=== PATIENT | male | born 1980 | race Caucasian/White ===

== ENCOUNTER → 2016-06-27 | Outpatient (CLI) | payer MEDICAID ==
[2016-06-27 08:05] LABS: Basophils # (A) 0.1 k/uL (0-0.2); Basophils % (A) 1 %; CHCM 34.3; Eosinophils # (A) 0.3 k/uL (0-0.7); Eosinophils % (A) 2 %; HCT 46.6 % (39.0-53.0); HGB 15.4 gm/dL (13.0-17.5); Luc # (Auto) 0.34; Luc % (Auto) 3; Lymphocytes # (A) 4.5 k/uL (1.0-4.8); Lymphocytes % (A) 37 %; MCH 26.1 pg (25.0-35.0); MCV 79.1 fL (80.0-100.0); Mean Platelet Volume 6.6; Monocytes # (A) 0.7 k/uL (0-1.0); Monocytes % (A) 6 %; Neutrophils # (A) 6.3 k/uL (1.3-7.7); Neutrophils % (A) 51 %; RDW 15.5 % (11.5-15.5); WBC 12.3 k/uL (3.8-10.6); WBC (Perox) 12.43
[2016-06-27 08:30] LABS: ALT 41 U/L (21-72); AST 29 U/L (17-59); Alkaline Phosphatase 58 U/L (38-126); Anion Gap 12 mmol/L; Blood Urea Nitrogen 19 mg/dL (9-20); Calcium 9.4 mg/dL (8.4-10.2); Carbon Dioxide 25 mmol/L (22-30); Chloride 104 mmol/L (98-107); Cholesterol 161 mg/dL (<200); Glucose 149 mg/dL (74-99); HDL Cholesterol 27 mg/dL (40-60); Non-African American GFR(MDRD) >60 (>60 ml/min/1.73 sqM); Potassium 4.5 mmol/L (3.5-5.1); Sodium 141 mmol/L (137-145); Total Bilirubin 0.7 mg/dL (0.2-1.3); Total Protein 8.1 g/dL (6.3-8.2); Triglycerides 236 mg/dL (<150)
[2016-06-27 08:40] LABS: Appearance,Urine Clear (Clear); Bilirubin,Urine Negative (Negative); Glucose,Urine (UA) Negative (Negative); Ketones,Urine Negative (Negative); Leukocyte Esterase,Urine Negative (Negative); Nitrite,Urine Negative (Negative); PH, Urine 5.5 (5.0-8.0); Protein,Urine Trace (Negative); Specific Gravity,Urine 1.024 (1.001-1.035); UA Billing (MACRO vs. MICRO) CHEM; Urobilinogen,Urine <2.0 mg/dL (<2.0)
== END | disposition home or self-care (01) ==
LOC: LABWHC1 07:37
PROVIDERS: ATTEND Internal Medicine
DX: E11.40 Type 2 diabetes mellitus with diabetic neuropathy, unspecified (principal); I10 Essential (primary) hypertension; E55.9 Vitamin D deficiency, unspecified
CPT/HCPCS: 36415; 80053; 80061; 81003; 82043; 82306; 85025

== ENCOUNTER → 2017-06-19 | Outpatient (CLI) | payer MEDICAID ==
[2017-06-19 08:57] LABS: Basophils # (A) 0.1 k/uL (0-0.2); Basophils % (A) 1 %; Eosinophils # (A) 0.2 k/uL (0-0.7); Eosinophils % (A) 2 %; HCT 45.2 % (39.0-53.0); HGB 15.2 gm/dL (13.0-17.5); Lymphocytes # (A) 3.3 k/uL (1.0-4.8); Lymphocytes % (A) 31 %; MCH 26.5 pg (25.0-35.0); MCHC 33.7 g/dL (31.0-37.0); MCV 78.7 fL (80.0-100.0); Monocytes # (A) 0.5 k/uL (0-1.0); Monocytes % (A) 5 %; Neutrophils # (A) 6.2 k/uL (1.3-7.7); Neutrophils % (A) 59 %; Platelet Count 224 k/uL (150-450); RBC 5.74 m/uL (4.30-5.90); RDW 15.4 % (11.5-15.5); WBC 10.7 k/uL (3.8-10.6)
[2017-06-19 09:16] LABS: ALT 47 U/L (21-72); AST 30 U/L (17-59); Albumin 4.3 g/dL (3.5-5.0); Alkaline Phosphatase 65 U/L (38-126); Anion Gap 15 mmol/L; Blood Urea Nitrogen 18 mg/dL (9-20); Calcium 9.6 mg/dL (8.4-10.2); Carbon Dioxide 27 mmol/L (22-30); Chloride 100 mmol/L (98-107); Cholesterol 177 mg/dL (<200); Glucose 164 mg/dL (74-99); HDL Cholesterol 30 mg/dL (40-60); LDL Cholesterol,Calculated 102 mg/dL (0-99); Potassium 4.5 mmol/L (3.5-5.1); Sodium 142 mmol/L (137-145); Total Bilirubin 0.8 mg/dL (0.2-1.3); Total Protein 7.5 g/dL (6.3-8.2); Triglycerides 227 mg/dL (<150)
== END | disposition home or self-care (01) ==
LOC: LABWHC1 08:07
PROVIDERS: ATTEND Internal Medicine
DX: I10 Essential (primary) hypertension (principal)
CPT/HCPCS: 36415; 80053; 80061; 85025

== ENCOUNTER → 2018-02-11 | Outpatient (CLI) | payer MEDICAID ==
[2018-02-11 08:01] LABS: Basophils # (A) 0.1 k/uL (0-0.2); Basophils % (A) 1 %; Eosinophils # (A) 0.2 k/uL (0-0.7); Eosinophils % (A) 2 %; HCT 45.4 % (39.0-53.0); Lymphocytes # (A) 3.7 k/uL (1.0-4.8); Lymphocytes % (A) 33 %; MCH 26.1 pg (25.0-35.0); MCHC 33.1 g/dL (31.0-37.0); MCV 78.9 fL (80.0-100.0); Mean Platelet Volume 7.1; Monocytes # (A) 0.6 k/uL (0-1.0); Monocytes % (A) 5 %; Neutrophils # (A) 6.3 k/uL (1.3-7.7); Neutrophils % (A) 56 %; Platelet Count 231 k/uL (150-450); RBC 5.75 m/uL (4.30-5.90); RDW 15.6 % (11.5-15.5); WBC 11.3 k/uL (3.8-10.6)
[2018-02-11 11:11] LABS: Albumin 4.3 g/dL (3.80-4.90); Albumin/Globulin Ratio 1.79 (1.20-2.10); Anion Gap 7.8 mmol/L (4.00-12.00); Carbon Dioxide 26.2 mmol/L (21.6-31.8); Globulin 2.4 g/dL (1.6-3.3); LDL Cholesterol,Calculated 87.8 mg/dL (0.0-131.0); Potassium 4.4 mmol/L (3.5-5.5); Total Bilirubin 0.6 mg/dL (0.3-1.2); Total Protein 6.7 g/dL (6.2-8.2); VLDL Calculation 38.2 mg/dL (5.00-40.00)
== END | disposition home or self-care (01) ==
LOC: LABWHC1 07:14
PROVIDERS: ATTEND Internal Medicine
DX: I10 Essential (primary) hypertension (principal)
CPT/HCPCS: 36415; 80053; 80061; 85025

== ENCOUNTER → 2019-04-17 | Outpatient (CLI) | payer MEDICAID ==
[2019-04-17 08:56] LABS: Appearance,Urine Clear (Clear); Bilirubin,Urine Negative (Negative); Blood,Urine Small (Negative); Color,Urine Yellow; Glucose,Urine (UA) Negative (Negative); Hyaline Casts,Urine 1 /lpf (0-2); Ketones,Urine Trace (Negative); Leukocyte Esterase,Urine Negative (Negative); Mucus,Urine Few /hpf; Nitrite,Urine Negative (Negative); PH, Urine 5.5 (5.0-8.0); Protein,Urine 2+ (Negative); RBC,Urine 2 /hpf (0-5); Specific Gravity,Urine 1.026 (1.001-1.035); Urobilinogen,Urine <2.0 mg/dL (<2.0); WBC,Urine 2 /hpf (0-5)
[2019-04-17 09:01] LABS: Basophils # (A) 0.1 k/uL (0-0.2); Basophils % (A) 0 %; Eosinophils % (A) 0 %; HCT 43.4 % (39.0-53.0); Lymphocytes # (A) 2.3 k/uL (1.0-4.8); Lymphocytes % (A) 17 %; MCHC 32.3 g/dL (31.0-37.0); MCV 80.4 fL (80.0-100.0); Monocytes # (A) 0.7 k/uL (0-1.0); Monocytes % (A) 5 %; Neutrophils # (A) 9.5 k/uL (1.3-7.7); Neutrophils % (A) 74 %; Platelet Count 221 k/uL (150-450); RBC 5.39 m/uL (4.30-5.90); RDW 15.8 % (11.5-15.5); WBC 12.9 k/uL (3.8-10.6)
[2019-04-17 16:25] LABS: African American GFR (CKD) 123.4 (60.0-200.0); Albumin 4.1 g/dL (3.80-4.90); Albumin/Globulin Ratio 1.46 (1.60-3.17); Anion Gap 11.9 mmol/L (4.00-12.00); Calcium 9.3 mg/dL (8.7-10.3); Carbon Dioxide 26.1 mmol/L (21.6-31.8); Chol/HDL Ratio 4.2; Globulin 2.8 g/dL (1.6-3.3); Non-African American GFR(CKD) 106.5 (60.0-200.0); Potassium 4.3 mmol/L (3.5-5.5); Total Bilirubin 0.6 mg/dL (0.2-1.2); Total Protein 6.9 g/dL (6.2-8.2)
== END | disposition home or self-care (01) ==
LOC: LABWHC1 08:05
PROVIDERS: ATTEND Internal Medicine
DX: I10 Essential (primary) hypertension (principal); E55.9 Vitamin D deficiency, unspecified
CPT/HCPCS: 36415; 80053; 80061; 81001; 82043; 82306; 82570; 85025

== ENCOUNTER 2020-03-30 15:39 | Inpatient (IN) | payer MEDICAID ==
[2020-03-30] MEDS ORDERED: SODIUM CHLORIDE 0.9% 1,000 ML IV STA ×2 (15:58→17:36)
--- NOTE | 2020-03-30 16:02 | ED ---
General Adult HPI - General Chief complaint: Recheck/Abnormal Lab/Rx Stated complaint: infection on foot Time Seen by Provider: 03/30/20 15:46 Source: patient, RN notes reviewed Mode of arrival: ambulatory Limitations: no limitations - History of Present Illness Initial comments: Patient is a 39-year-old male that comes emergency Department to receive IV antibiotics and admitted, per Dr. Nichols. Patient noted that he recently had part of his second left toe removed, and it is not progressing as well as the doctor wanted. And is followed today his doctor told him to ER to get IV antibiotics and admitted. She denied any pain or discomfort in his toe. He said he was currently on Cipro and clindamycin for oral antibiotic therapy. He did note that he has a history of osteomyelitis and was found to be ALLERGIC to Rocephin. His foot and toe were wrapped in a clean dry dressing it was nontender, with no apparent signs or symptoms of infection. He denied any chest pain shortness of breath headache nausea vomiting diarrhea constipation fever f atigue chills. - Related Data Home Medications Medication Instructions Recorded Confirmed sitaGLIPtin [Januvia] 100 mg PO DAILY 03/04/14 03/30/20 amLODIPine BESYLATE [Norvasc] 5 mg PO DAILY 05/07/15 03/30/20 hydroCHLOROthiazide [Hydrodiuril] 12.5 mg PO DAILY 08/04/15 03/30/20 Ciprofloxacin HCl [Cipro] 750 mg PO Q12H 03/30/20 03/30/20 Olmesartan Medoxomil [Benicar] 40 mg PO DAILY 03/30/20 03/30/20 Pioglitazone [Actos] 45 mg PO DAILY 03/30/20 03/30/20 Pravastatin Sodium [Pravachol] 10 mg PO DAILY 03/30/20 03/30/20 clindamycin HCL [Cleocin] 300 mg PO TID 03/30/20 03/30/20 metFORMIN HCL [metFORMIN HCL ER] 750 mg PO BID 03/30/20 03/30/20 Allergies Allergy/AdvReac Type Severity Reaction Status Date / Time Penicillins Allergy Intermediate Rash/Hives Verified 03/30/20 17:36 ceftriaxone sodium Allergy Rash/Hives Verified 03/30/20 17:36 [From Rocephin] Review of Systems ROS Statement: Those systems with pertinent positive or pertinent negative responses have been documented in the HPI. ROS Other: All systems not noted in ROS Statement are negative. Past Medical History Past Medical History: Diabetes Mellitus, Hypertension Additional Past Medical History / Comment(s): cellulitis left leg RT FOOT INFECTION SECOND TOE 07/2015 History of Any Multi-Drug Resistant Organisms: None Reported Additional Past Surgical History / Comment(s): vasectomy, GED, tpe surgery Past Anesthesia/Blood Transfusion Reactions: No Reported Reaction Past Psychological History: No Psychological Hx Reported Smoking Status: Former smoker Past Alcohol Use History: Rare Past Drug Use History: None Reported - Past Family History Mother Family Medical History: Diabetes Mellitus Father Family Medical History: Unable to Obtain General Exam Limitations: no limitations General appearance: alert, in no apparent distress, obese Head exam: Present: atraumatic, normocephalic, normal inspection Eye exam: Present: normal appearance, PERRL, EOMI. Absent: scleral icterus, conjunctival injection, periorbital swelling ENT exam: Present: normal exam, mucous membranes moist Neck exam: Present: normal inspection. Absent: tenderness, meningismus, lymphadenopathy Respiratory exam: Present: normal lung sounds bilaterally. Absent: respiratory distress, wheezes, rales, rhonchi, stridor Cardiovascular Exam: Present: regular rate, normal rhythm, normal heart sounds. Absent: systolic murmur, diastolic murmur, rubs, gallop, clicks GI/Abdominal exam: Present: soft, normal bowel sounds. Absent: distended, tenderness, guarding, rebound, rigid Extremities exam: Present: normal inspection, full ROM, normal capillary refill, other (Left foot and left second toe wrapped in a clean dry dressing, nontender to the touch, no apparent signs or symptoms of infection). Absent: tenderness, pedal edema, joint swelling, calf tenderness Neurological exam: Present: alert, oriented X3, CN II-XII intact Psychiatric exam: Present: normal affect, normal mood Skin exam: Present: warm, dry, intact, normal color. Absent: rash Course Vital Signs 03/30/20 15:40 Temperature 97.7 F Pulse Rate 89 Respiratory 16 Rate Blood Pressure 174/125 O2 Sat by Pulse 97 Oximetry Medical Decision Making - Medical Decision Making 39-year-old male with partial left second toe removal here for IV antibiotics and admission per his doctor. Basic labs ordered, 1 L normal saline given as bolus ordered. We'll wait for labs to come back before ordering antibiotics. Case discussed with Dr. Penny. He was decided the patient would be admitted for IV antibiotic therapy. - Lab Data Result diagrams: 03/30/20 16:30 03/30/20 16:30 Lab Results 03/30/20 03/30/20 03/30/20 Range/Units 16:30 16:30 16:31 WBC 9.7 (3.8-10.6) k/uL RBC 5.21 (4.30-5.90) m/uL Hgb 14.1 (13.0-17.5) gm/dL Hct 42.0 (39.0-53.0) % MCV 80.6 (80.0-100.0) fL MCH 27.0 (25.0-35.0) pg MCHC 33.5 (31.0-37.0) g/dL RDW 15.9 H (11.5-15.5) % Plt Count 281 (150-450) k/uL MPV 7.5 Neutrophils % 62 % Lymphocytes % 28 % Monocytes % 6 % Eosinophils % 2 % Basophils % 1 % Neutrophils # 6.1 (1.3-7.7) k/uL Lymphocytes # 2.7 (1.0-4.8) k/uL Monocytes # 0.6 (0-1.0) k/uL Eosinophils # 0.2 (0-0.7) k/uL Basophils # 0.1 (0-0.2) k/uL Sodium 137 (137-145) mmol/L Potassium 4.3 (3.5-5.1) mmol/L Chloride 99 (98-107) mmol/L Carbon Dioxide 27 (22-30) mmol/L Anion Gap 11 mmol/L BUN 22 H (9-20) mg/dL Creatinine 0.79 (0.66-1.25) mg/dL Est GFR (CKD-EPI)AfAm >90 (>60 ml/min/1.73 sqM) Est GFR (CKD-EPI)NonAf >90 (>60 ml/min/1.73 sqM) Glucose 212 H (74-99) mg/dL Plasma Lactic Acid Rich 1.7 (0.7-2.0) mmol/L Calcium 9.6 (8.4-10.2) mg/dL Total Bilirubin 0.5 (0.2-1.3) mg/dL AST 30 (17-59) U/L ALT 26 (4-49) U/L Alkaline Phosphatase 58 (38-126) U/L C-Reactive Protein 18.0 H (<10.0) mg/L Total Protein 8.6 H (6.3-8.2) g/dL Albumin 4.3 (3.5-5.0) g/dL Urine Color Urine Appearance (Clear) Urine pH (5.0-8.0) Ur Specific Guin (1.001-1.035) Urine Protein (Negative) Urine Glucose (UA) (Negative) Urine Ketones (Negative) Urine Blood (Negative) Urine Nitrite (Negative) Urine Bilirubin (Negative) Urine Urobilinogen (<2.0) mg/dL Ur Leukocyte Esterase (Negative) Urine RBC (0-5) /hpf Urine WBC (0-5) /hpf 03/30/20 Range/Units 17:21 WBC (3.8-10.6) k/uL RBC (4.30-5.90) m/uL Hgb (13.0-17.5) gm/dL Hct (39.0-53.0) % MCV (80.0-100.0) fL MCH (25.0-35.0) pg MCHC (31.0-37.0) g/dL RDW (11.5-15.5) % Plt Count (150-450) k/uL MPV Neutrophils % % Lymphocytes % % Monocytes % % Eosinophils % % Basophils % % Neutrophils # (1.3-7.7) k/uL Lymphocytes # (1.0-4.8) k/uL Monocytes # (0-1.0) k/uL Eosinophils # (0-0.7) k/uL Basophils # (0-0.2) k/uL Sodium (137-145) mmol/L Potassium (3.5-5.1) mmol/L Chloride (98-107) mmol/L Carbon Dioxide (22-30) mmol/L Anion Gap mmol/L BUN (9-20) mg/dL Creatinine (0.66-1.25) mg/dL Est GFR (CKD-EPI)AfAm (>60 ml/min/1.73 sqM) Est GFR (CKD-EPI)NonAf (>60 ml/min/1.73 sqM) Glucose (74-99) mg/dL Plasma Lactic Acid Rich (0.7-2.0) mmol/L Calcium (8.4-10.2) mg/dL Total Bilirubin (0.2-1.3) mg/dL AST (17-59) U/L ALT (4-49) U/L Alkaline Phosphatase (38-126) U/L C-Reactive Protein (<10.0) mg/L Total Protein (6.3-8.2) g/dL Albumin (3.5-5.0) g/dL Urine Color Yellow Urine Appearance Clear (Clear) Urine pH 6.0 (5.0-8.0) Ur Specific Guin 1.017 (1.001-1.035) Urine Protein 3+ H (Negative) Urine Glucose (UA) Trace H (Negative) Urine Ketones Negative (Negative) Urine Blood Moderate H (Negative) Urine Nitrite Negative (Negative) Urine Bilirubin Negative (Negative) Urine Urobilinogen <2.0 (<2.0) mg/dL Ur Leukocyte Esterase Negative (Negative) Urine RBC 4 (0-5) /hpf Urine WBC 1 (0-5) /hpf Disposition Clinical Impression: Infected abrasion of second toe of left foot Disposition: ADMITTED IP TO THIS HOSP Condition: Stable Referrals: Zohaib Bustamante MD [Primary Care Provider] - 1-2 days Time of Disposition: 17:47
[2020-03-30 16:43] LABS: Basophils # (A) 0.1 k/uL (0-0.2); Basophils % (A) 1 %; Eosinophils # (A) 0.2 k/uL (0-0.7); Eosinophils % (A) 2 %; HGB 14.1 gm/dL (13.0-17.5); Lymphocytes # (A) 2.7 k/uL (1.0-4.8); Lymphocytes % (A) 28 %; MCHC 33.5 g/dL (31.0-37.0); MCV 80.6 fL (80.0-100.0); Mean Platelet Volume 7.5; Monocytes # (A) 0.6 k/uL (0-1.0); Monocytes % (A) 6 %; Neutrophils # (A) 6.1 k/uL (1.3-7.7); Neutrophils % (A) 62 %; Platelet Count 281 k/uL (150-450); RBC 5.21 m/uL (4.30-5.90); RDW 15.9 % (11.5-15.5); WBC 9.7 k/uL (3.8-10.6)
[2020-03-30 16:56] LABS: ALT 26 U/L (4-49); AST 30 U/L (17-59); African American GFR (CKD) >90 (>60 ml/min/1.73 sqM); Albumin 4.3 g/dL (3.5-5.0); Alkaline Phosphatase 58 U/L (38-126); Anion Gap 11 mmol/L; Blood Urea Nitrogen 22 mg/dL (9-20); Calcium 9.6 mg/dL (8.4-10.2); Carbon Dioxide 27 mmol/L (22-30); Chloride 99 mmol/L (98-107); Glucose 212 mg/dL (74-99); Non-African American GFR(CKD) >90 (>60 ml/min/1.73 sqM); Sodium 137 mmol/L (137-145); Total Bilirubin 0.5 mg/dL (0.2-1.3); Total Protein 8.6 g/dL (6.3-8.2)
[2020-03-30 17:17] LABS: Potassium 4.3 mmol/L (3.5-5.1)
[2020-03-30] MEDS ORDERED: LEVOFLOXACIN 750MG-D5W PMX 750 MG in DEXTROSE/WATER 1 150ML.BAG IVPB STA (17:39)
[2020-03-30] MEDS ORDERED: traMADol 50 MG TAB PO PRN (17:42)
[2020-03-30] MEDS ORDERED: MORPHINE SULFATE 4 MG/ML SYRINGE IV PRN (17:42)
[2020-03-30] MEDS ORDERED: NALOXONE 0.4 MG/ML 1 ML VIAL IV PRN (17:42)
[2020-03-30 17:43] LABS: Appearance,Urine Clear (Clear); Bilirubin,Urine Negative (Negative); Blood,Urine Moderate (Negative); Color,Urine Yellow; Glucose,Urine (UA) Trace (Negative); Ketones,Urine Negative (Negative); Leukocyte Esterase,Urine Negative (Negative); Nitrite,Urine Negative (Negative); Protein,Urine 3+ (Negative); RBC,Urine 4 /hpf (0-5); Specific Gravity,Urine 1.017 (1.001-1.035); Urobilinogen,Urine <2.0 mg/dL (<2.0); WBC,Urine 1 /hpf (0-5)
[2020-03-30] MEDS ORDERED: LABETALOL 5 MG/ML VIAL MDV IVP STA ×2 (19:03→19:48)
[2020-03-30] MEDS: SODIUM CHLORIDE 0.9% 1,000 ML IV SCH (19:13)
[2020-03-30 20:39] LABS: Glucose,Whole Blood 169 mg/dL (75-99)
--- NOTE | 2020-03-30 21:12 | P.HPIM ---
History of Present Illness H&P Date: 03/30/20 The patient is a 39-year-old male with a PMH of morbid obesity, type II DM, hypertension, and peripheral neuropathy who was sent to the emergency room by his rod bending machine operator for a nonhealing left second toe. The patient notes that his second left toe was recently partially amputated and that he was started on oral antibiotics (ciprofloxacin and clindamycin). He subsequently saw his rod bending machine operator at the office today who was not happy with his progress and noted that he is concerned for osteomyelitis in that the patient should be admitted to the hospital for IV antibiotics. The patient notes no pain at the toe or his foot. He reports mild chills yesterday but denied additional complaints. Denied leg swelling, fevers, chest pain, shortness of breath, nausea, vomiting, diarrhea, abdominal pain, headache, dizziness. In the emergency room, laboratory evaluation was remarkable for BUN of 22, glucose 212, and CRP 18. Review of Systems Pertinent positives and negatives as discussed in HPI, a complete review of systems was performed and all other systems are negative. Past Medical History Past Medical History: Diabetes Mellitus, Hypertension Additional Past Medical History / Comment(s): cellulitis left leg RT FOOT INFECTION SECOND TOE 07/2015 History of Any Multi-Drug Resistant Organisms: None Reported Additional Past Surgical History / Comment(s): vasectomy, GED, tpe surgery Past Anesthesia/Blood Transfusion Reactions: No Reported Reaction Past Psychological History: No Psychological Hx Reported Smoking Status: Former smoker Past Alcohol Use History: Rare Past Drug Use History: None Reported - Past Family History Mother Family Medical History: Diabetes Mellitus Father Family Medical History: Unable to Obtain Medications and Allergies Home Medications Medication Instructions Recorded Confirmed Type sitaGLIPtin [Januvia] 100 mg PO DAILY 03/04/14 03/30/20 History amLODIPine BESYLATE [Norvasc] 5 mg PO DAILY 05/07/15 03/30/20 History hydroCHLOROthiazide [Hydrodiuril] 12.5 mg PO DAILY 08/04/15 03/30/20 History Ciprofloxacin HCl [Cipro] 750 mg PO Q12H 03/30/20 03/30/20 History Olmesartan Medoxomil [Benicar] 40 mg PO DAILY 03/30/20 03/30/20 History Pioglitazone [Actos] 45 mg PO DAILY 03/30/20 03/30/20 History Pravastatin Sodium [Pravachol] 10 mg PO DAILY 03/30/20 03/30/20 History clindamycin HCL [Cleocin] 300 mg PO TID 03/30/20 03/30/20 History metFORMIN HCL [metFORMIN HCL ER] 750 mg PO BID 03/30/20 03/30/20 History Allergies Allergy/AdvReac Type Severity Reaction Status Date / Time Penicillins Allergy Intermediate Rash/Hives Verified 03/30/20 17:36 ceftriaxone sodium Allergy Rash/Hives Verified 03/30/20 17:36 [From Rocepdcn] Physical Exam Vitals: Vital Signs Temp Pulse Pulse Resp BP BP Pulse Ox 03/30/20 20:40 97.9 F 80 20 179/85 99 03/30/20 20:35 97.9 F 80 20 179/85 99 03/30/20 20:11 98.9 F 74 20 156/80 97 03/30/20 19:18 83 18 151/98 99 03/30/20 18:14 84 16 179/105 98 03/30/20 15:40 97.7 F 89 16 174/125 97 Intake and Output 03/30/20 03/30/20 03/30/20 06:59 14:59 22:59 Other: Weight 192.777 kg General: non toxic, no distress, appears at stated age, morbidly obese Derm: no unusual ecchymoses, warm, dry Head: atraumatic, normocephalic, symmetric Eyes: EOMI, no lid lag, anicteric sclera, pupils equal round reactive to light ENT: Nose and ears atraumatic, no thrush, no pharyngeal erythema Neck: No thyromegaly, no cervical lymphadenopathy, trachea midline, supple Mouth: no lip lesion, mucus membranes moist Cardiovascular: S1S2 reg, no murmur, positive posterior tibial pulse bilateral, no edema, capillary refill less than 2 seconds Lungs: CTA bilateral, no rhonchi, no rales , no accessory muscle use Abdominal: soft, nontender to palpation, no guarding, no appreciable organomegaly, normal bowel sounds Ext: no gross muscle atrophy, muscle strength 5 out of 5 in all 4 extremities grossly, no contractures, left second toe with partial amputation with 2 stitches with erythema extending to the dorsum of the foot Neuro: CN II-XI grossly intact, light touch intact all 4 extremities, finger to nose within normal limits, Psych: Alert, oriented, appropriate affect Results CBC & Chem 7: 03/30/20 16:30 03/30/20 16:30 Labs: Abnormal Lab Results - Last 24 Hours (Table) 03/30/20 03/30/20 03/30/20 Range/Units 16:30 16:30 17:21 RDW 15.9 H (11.5-15.5) % BUN 22 H (9-20) mg/dL Glucose 212 H (74-99) mg/dL POC Glucose (mg/dL) (75-99) mg/dL C-Reactive Protein 18.0 H (<10.0) mg/L Total Protein 8.6 H (6.3-8.2) g/dL Urine Protein 3+ H (Negative) Urine Glucose (UA) Trace H (Negative) Urine Blood Moderate H (Negative) 03/30/20 Range/Units 20:36 RDW (11.5-15.5) % BUN (9-20) mg/dL Glucose (74-99) mg/dL POC Glucose (mg/dL) 169 H (75-99) mg/dL C-Reactive Protein (<10.0) mg/L Total Protein (6.3-8.2) g/dL Urine Protein (Negative) Urine Glucose (UA) (Negative) Urine Blood (Negative) Assessment and Plan Plan: Left second toe suspected osteomyelitis -Infectious disease consult -Continue with Levaquin -Follow-up blood cultures -MRI of L foot -IV fluids -Informed RN to brandon area of erythema Chronic conditions: Type II DM, hypertension -Continue the medications -Old oral hypoglycemics -Check A1c -Lispro insulin sliding scale with blood glucose monitoring DVT prophylaxis -Heparin subq The patient is admitted with an anticipated greater than 2 midnight stay for evaluation of suspected osteomyelitis CODE STATUS: Full Code Discussed with: Patient, Anticipated discharge date: 3-[address]: Home A total of 35 minutes was spent on the care of this complex patient more than 50% of the time was spent in counseling and care coordination.
[2020-03-30] MEDS: HEPARIN SODIUM,PORCINE 5,000 UNIT/ML 1 ML VIAL SQ SCH (23:30)
[2020-03-31 07:00] LABS: Glucose,Whole Blood 163 mg/dL (75-99)
[2020-03-31] MEDS: INSULIN ASPART (NovoLOG) 100 UNIT/ML VIAL SQ SCH ×4 (08:29→21:50)
[2020-03-31] MEDS: hydroCHLOROthiazide 12.5 MG CAP PO SCH (08:35)
[2020-03-31] MEDS: HEPARIN SODIUM,PORCINE 5,000 UNIT/ML 1 ML VIAL SQ SCH ×3 (08:35→23:45)
[2020-03-31] MEDS: PRAVASTATIN SODIUM 20 MG TAB PO SCH (08:35)
[2020-03-31] MEDS ORDERED: amLODIPine 5 MG TAB PO SCH (09:00)
[2020-03-31 11:14] LABS: Glucose,Whole Blood 170 mg/dL (75-99)
[2020-03-31] MEDS: LINAGLIPTIN 5 MG TABLET PO SCH (12:32)
--- NOTE | 2020-03-31 15:27 | P.CONS ---
History of Present Illness - Reason for Consult Consult date: 03/31/20 Suspected osteomyelitis second left toe - History of Present Illness HISTORY OF PRESENT ILLNESS This is a 39-year-old male patient, hypertension that gives history of an ulcer to the distal end of his left second toe that started sometime in January and also had a hammertoe. He underwent excision of the distal phalanx on of last week in the office of Dr. Nichols. Patient has been on clindamycin and ciprofloxacin in the outpatient setting. Patient had follow-up with his physician in the office and due to concerns for infection, patient was sent into [facility] emergency center for evaluation and treatment. His previous wound culture is positive for 2 Streptococcus and Pseudomonas organi sms. Patient has been started on Levaquin IV. No leukocytosis. No fevers. Creatinine 0.79. Coronavirus PCR not detected. REVIEW OF SYSTEMS Constitutional: No fever, no chills, no night sweats. No weight change. No weakness, fatigue or lethargy. EENT: No headache. No nasal drainage or congestion. No epistaxis. No sore throat. Lungs: No shortness of breath, cough, no sputum production. No wheezing. Cardiovascular: No chest pain, no lower extremity edema. No lightheadedness or dizziness. No syncopal episodes. Abdominal: No abdominal pain. No nausea, vomiting. No diarrhea. No cons tipation. No loss of appetite. Genitourinary: No dysuria, increased frequency, urgency. No urinary retention. Musculoskeletal: No myalgias. No muscle weakness. Integumentary: Reports wounds, no lesions. No rash or pruritus. Neurologic: No aphasia. No facial droop. No change in mentation. Endocrine: Reports abnormal blood sugars. PHYSICAL EXAMINATION Gen: This is a 39-year-old morbidly obese male. He is resting in bed and appears to be comfortable. VS: Afebrile, heart rate 85, blood pressure 165/93, pulse ox 97% on room air. HEENT: Head is atraumatic, normocephalic. Pupils equal, round. Sclerae is anicteric. NECK: Supple. No JVD. No lymphadenopathy. No thyromegaly. LUNGS: Clear to auscultation. No wheezes or rhonchi. No intercostal retractions. HEART: Regular rate and rhythm. ABDOMEN: Soft. Bowel sounds are present. No masses. No tenderness. EXTREMITIES: No pedal edema. No calf tenderness. Edema, redness, open wound to the left second distal toe. NEUROLOGICAL: Patient is awake, alert and oriented x3. Cranial nerves 2 through 12 are grossly intact. ASSESSMENT Infection left second toe, possible osteomyelitis Diabetes mellitus type 2 PLAN Discontinue IV Levaquin Start Azactam 2 g IV piggyback every 8 hours Vancomycin, pharmacy to dose senior insight manager will check coverage for home IV antibiotics Further recommendation as patient progresses Think you kindly for this consultation. The above dictated assessment and findings were discussed with Dr. Renner. The impression and plan of care have been directed as dictated. Radha Diehl nurse practitioner acting as scribe for Dr. Renner. Past Medical History Past Medical History: Diabetes Mellitus, Hypertension Additional Past Medical History / Comment(s): cellulitis left leg RT FOOT INFECTION SECOND TOE 07/2015 History of Any Multi-Drug Resistant Organisms: None Reported Additional Past Surgical History / Comment(s): vasectomy, GED, tpe surgery Past Anesthesia/Blood Transfusion Reactions: No Reported Reaction Past Psychological History: No Psychological Hx Reported Smoking Status: Former smoker Past Alcohol Use History: Rare Past Drug Use History: None Reported - Past Family History Mother Family Medical History: Diabetes Mellitus Father Family Medical History: Unable to Obtain Medications and Allergies Home Medications Medication Instructions Recorded Confirmed Type sitaGLIPtin [Januvia] 100 mg PO DAILY 03/04/14 03/30/20 History amLODIPine BESYLATE [Norvasc] 5 mg PO DAILY 05/07/15 03/30/20 History hydroCHLOROthiazide [Hydrodiuril] 12.5 mg PO DAILY 08/04/15 03/30/20 History Ciprofloxacin HCl [Cipro] 750 mg PO Q12H 03/30/20 03/30/20 History Olmesartan Medoxomil [Benicar] 40 mg PO DAILY 03/30/20 03/30/20 History Pioglitazone [Actos] 45 mg PO DAILY 03/30/20 03/30/20 History Pravastatin Sodium [Pravachol] 10 mg PO DAILY 03/30/20 03/30/20 History clindamycin HCL [Cleocin] 300 mg PO TID 03/30/20 03/30/20 History metFORMIN HCL [metFORMIN HCL ER] 750 mg PO BID 03/30/20 03/30/20 History Allergies Allergy/AdvReac Type Severity Reaction Status Date / Time Penicillins Allergy Intermediate Rash/Hives Verified 03/30/20 17:36 ceftriaxone sodium Allergy Rash/Hives Verified 03/30/20 17:36 [From [facility]] Physical Exam Vitals: Vital Signs Temp Pulse Pulse Resp BP BP Pulse Ox 03/31/20 14:00 97.5 F L 85 18 165/93 97 03/31/20 08:36 84 18 03/31/20 08:00 97.4 F L 84 18 145/73 98 03/31/20 01:15 97.5 F L 82 20 144/77 97 03/30/20 20:40 97.9 F 80 20 179/85 99 03/30/20 20:35 97.9 F 80 20 179/85 99 03/30/20 20:11 98.9 F 74 20 156/80 97 03/30/20 19:18 83 18 151/98 99 03/30/20 18:14 84 16 179/105 98 03/30/20 15:40 97.7 F 89 16 174/125 97 Intake and Output 03/31/20 03/31/20 03/31/20 06:59 14:59 22:59 Other: # Voids 1 Results CBC & Chem 7: 03/30/20 16:30 03/30/20 16:30 Labs: Abnormal Lab Results - Last 24 Hours (Table) 03/30/20 03/30/20 03/30/20 Range/Units 16:30 16:30 17:21 RDW 15.9 H (11.5-15.5) % BUN 22 H (9-20) mg/dL Glucose 212 H (74-99) mg/dL POC Glucose (mg/dL) (75-99) mg/dL C-Reactive Protein 18.0 H (<10.0) mg/L Total Protein 8.6 H (6.3-8.2) g/dL Urine Protein 3+ H (Negative) Urine Glucose (UA) Trace H (Negative) Urine Blood Moderate H (Negative) 03/30/20 03/31/20 03/31/20 Range/Units 20:36 06:58 11:12 RDW (11.5-15.5) % BUN (9-20) mg/dL Glucose (74-99) mg/dL POC Glucose (mg/dL) 169 H 163 H 170 H (75-99) mg/dL C-Reactive Protein (<10.0) mg/L Total Protein (6.3-8.2) g/dL Urine Protein (Negative) Urine Glucose (UA) (Negative) Urine Blood (Negative)
[2020-03-31] MEDS ORDERED: VANCOMYCIN IV PER PHARMACY 1 EACH MISC MISCELLANE SCH (15:30)
[2020-03-31] MEDS: AZTREONAM 2 GM in SODIUM CHLORIDE 0.9% 100 ML IVPB SCH ×2 (16:15→23:45)
[2020-03-31 16:33] LABS: Hemoglobin A1C 7.6 % (4.0-6.0)
--- NOTE | 2020-03-31 16:36 | P.PN ---
Subjective Progress Note Date: 03/31/20 (Delayed charting seen at 10:30) Principal diagnosis: Left second toe redness and infection Patient is a 39-year-old male for history of diabetes mellitus type 2 and underlying neuropathy, prior right toe amputation, morbid obesity with BMI 62.8, and hypertension who presented to the emergency department at the direction of Dr. Nichols his outpatient cash room clerk secondary to worsening infection in his left second toe. The ER he underwent an extensive evaluation. He was hypertensive on arrival with a blood pressure of 174/125. Initial laboratory analysis was unremarkable other than a CRP of 18 and a glucose of 212. There is concern for osteomyelitis of the left second digit and he was subsequently started on Levaquin secondary to an ALLERGY to cephalosporins and penicillins. He was admitted for further monitoring. Infectious disease and podiatry were consulted. He was subsequently transitioned to aztreonam and vancomycin. MRI of the foot is pending. He reports that his blood glucoses have been well controlled with an A1c last week of 7.4. Patient seen and examined at bedside. He denies any pain in his toes and states that he has limited feeling in his feet. He was taking outpatient oral antibiotic and then underwent surgery of Dr. Nichols with removal of part of his bone and attempt to save his toe. When he went back for recheck the erythema was increasing and his foot and Dr. Nichols subsequently sent him to the emergency department. He denies any chest pain, shortness breath, nausea, vomiting, or diarrhea. General: non toxic, no distress, appears at stated age, obese Derm: warm, dry, erythema of the left second toe with a line of demarcation at the metatarsophalangeal joint, Head: atraumatic, normocephalic, symmetric Eyes: EOMI, no lid lag, anicteric sclera Mouth: no lip lesion, mucus membranes moist Cardiovascular: S1S2 reg, no murmur, positive posterior tibial pulse bilateral, Lungs: Decreased breath sounds bilateral, no rhonchi, no rales , no accessory muscle use Abdominal: soft, nontender to palpation, no guarding, no appreciable organomegaly Ext: Left second toe with erythema, warmth, and swelling, no gross muscle atrophy, no edema, no contractures Neuro: CN II-XI grossly intact, no focal neuro deficits Psych: Alert, oriented, appropriate affect Left second toe osteomyelitis, probable -Infectious disease recommendations: Aztreonam and vancomycin, anticipate need for PICC line and outpatient IV antibiotics which patient has done in the past. -Await MRI -Pain control -Podiatry recommendations Diabetes mellitus type 2 -Well-controlled with A1c 7.42/21 -Hold Actos and metformin -Start Tradjenta -Sliding-scale insulin, follow blood sugars Hypertension, urgency on arrival -Continue with Norvasc but increase to 10 mg daily, continue hydrochlorothiazide. Consider initiation of SRINATH inhibitor in the outpatient setting with discontinuation of the calcium channel john secondary to being a known diabetic -Follow blood pressures closely Dyslipidemia -Pravachol Morbid obesity with BMI 62.8 -Structured outpatient weight loss DVT prophylaxis: Heparin Discussed with: Patient, nursing Anticipated discharge: 3-[address]: Home A total of 35 minutes was spent on the care of this complex patient more than 50% of the time was spent in counseling and care coordination. Objective - Vital Signs Vital signs: Vital Signs Temp 97.5 F L 03/31/20 14:00 Pulse 85 03/31/20 14:00 Resp 18 03/31/20 14:00 BP 165/93 03/31/20 14:00 Pulse Ox 97 03/31/20 14:00 Intake & Output 03/30/20 03/31/20 03/31/20 18:59 06:59 18:59 Intake Total 480 Balance 480 Weight 192.777 kg 192.777 kg 215.78 kg Intake: Oral 480 Other: # Voids 1 - Labs CBC & Chem 7: 03/30/20 16:30 03/30/20 16:30 Labs: Abnormal Lab Results - Last 24 Hours (Table) 03/30/20 03/30/20 03/30/20 Range/Units 16:30 16:30 17:21 RDW 15.9 H (11.5-15.5) % BUN 22 H (9-20) mg/dL Glucose 212 H (74-99) mg/dL POC Glucose (mg/dL) (75-99) mg/dL C-Reactive Protein 18.0 H (<10.0) mg/L Total Protein 8.6 H (6.3-8.2) g/dL Urine Protein 3+ H (Negative) Urine Glucose (UA) Trace H (Negative) Urine Blood Moderate H (Negative) 03/30/20 03/31/20 03/31/20 Range/Units 20:36 06:58 11:12 RDW (11.5-15.5) % BUN (9-20) mg/dL Glucose (74-99) mg/dL POC Glucose (mg/dL) 169 H 163 H 170 H (75-99) mg/dL C-Reactive Protein (<10.0) mg/L Total Protein (6.3-8.2) g/dL Urine Protein (Negative) Urine Glucose (UA) (Negative) Urine Blood (Negative)
[2020-03-31 17:00] LABS: Glucose,Whole Blood 126 mg/dL (75-99)
[2020-03-31] MEDS ORDERED: LEVOFLOXACIN 750MG-D5W PMX 750 MG in DEXTROSE/WATER 1 150ML.BAG IVPB SCH (17:00)
[2020-03-31] MEDS: VANCOMYCIN 2,500 MG in SODIUM CHLORIDE 0.9% 500 ML 500 ML IVPB SCH (17:23)
[2020-03-31] MEDS: SODIUM CHLORIDE 0.9% 1,000 ML IV SCH ×2 (20:38→21:48)
--- NOTE | 2020-03-31 21:12 | MR ---
EXAMINATION TYPE: MR foot LT wo/w con DATE OF EXAM: 03/31/2020 COMPARISON: HISTORY: Osteomyelitis, non healing left second toe CONTRAST: Standard multiplanar, multisequence MRI departmental protocol utilizing 19 mL intravenous Gadavist ga dolinium contrast. On the STIR images there is diffuse subcutaneous edema of the forefoot. This is more noticeable on th e anterior aspect of the forefoot. There is mild increased signal within the middle phalanx of the second toe. There is absence of the d istal phalanx of the second toe. There is soft tissue swelling of the entire second toe. The other to es appear intact. The metatarsals appear intact. I see no pathologic enhancement. IMPRESSION: There is edema in the middle phalanx of the second toe and consistent with osteomyelitis. There is am putation deformity of the distal phalanx of the second toe. Diffuse soft tissue swelling around the second toe and also subcutaneous edema in the entire forefoot . No drainable fluid collection.
[2020-03-31 21:27] LABS: Glucose,Whole Blood 151 mg/dL (75-99)
[2020-04-01] MEDS: VANCOMYCIN 2,500 MG in SODIUM CHLORIDE 0.9% 500 ML 500 ML IVPB SCH ×3 (00:55→16:30)
[2020-04-01 07:10] LABS: Glucose,Whole Blood 140 mg/dL (75-99)
[2020-04-01] MEDS: AZTREONAM 2 GM in SODIUM CHLORIDE 0.9% 100 ML IVPB SCH ×2 (08:07→16:31)
[2020-04-01] MEDS: INSULIN ASPART (NovoLOG) 100 UNIT/ML VIAL SQ SCH ×4 (08:08→20:56)
[2020-04-01] MEDS: hydroCHLOROthiazide 12.5 MG CAP PO SCH (08:09)
[2020-04-01] MEDS: amLODIPine 10 MG TAB PO SCH (08:09)
[2020-04-01] MEDS: HEPARIN SODIUM,PORCINE 5,000 UNIT/ML 1 ML VIAL SQ SCH ×2 (08:09→16:30)
[2020-04-01] MEDS: PRAVASTATIN SODIUM 20 MG TAB PO SCH (08:09)
[2020-04-01] MEDS: LINAGLIPTIN 5 MG TABLET PO SCH (08:10)
[2020-04-01 09:04] LABS: HCT 38.8 % (39.6-50.0); HGB 12.2 g/dL (13.0-17.0); MCH 26.2 pg (27.0-32.0); MCHC 31.4 g/dL (32.0-37.0); MCV 83.3 fL (80.0-97.0); Mean Platelet Volume 10.5 fL (9.5-12.2); Platelet Count 221 X 10*3/uL (140-440); RBC 4.66 X 10*6/uL (4.40-5.60); RDW 15.6 % (11.5-14.5); WBC 6.46 X 10*3/uL (4.50-10.00)
[2020-04-01 09:50] LABS: African American GFR (CKD) 135.9 (60.0-200.0); Anion Gap 8.8 mmol/L (4.00-12.00); Calcium 8.5 mg/dL (8.7-10.3); Carbon Dioxide 25.2 mmol/L (21.6-31.8); Non-African American GFR(CKD) 117.2 (60.0-200.0)
--- NOTE | 2020-04-01 11:15 | P.PN ---
Subjective Progress Note Date: 04/01/20 (delayed charting seen at 0930) Principal diagnosis: Left second toe redness and infection Patient is a 39-year-old male for history of diabetes mellitus type 2 and underlying neuropathy, prior right toe amputation, morbid obesity with BMI 62.8, and hypertension who presented to the emergency department at the direction of Dr. Nichols his outpatient nuclear medicine officer secondary to worsening infection in his left second toe. The ER he underwent an extensive evaluation. He was hypertensive on arrival with a blood pressure of 174/125. Initial laboratory analysis was unremarkable other than a CRP of 18 and a glucose of 212. There is concern for osteomyelitis of the left second digit and he was subsequently started on Levaquin secondary to an ALLERGY to cephalosporins and penicillins. He was admitted for further monitoring. Infectious disease and podiatry were consulted. He was subsequently transitioned to aztreonam and vancomycin. He reports that his blood glucoses have been well controlled with an A1c last week of 7.4. MRI of his foot show left second toe osteomyelitis. Patient seen and examined at bedside. No chest pain, shortness of breath, nausea, vomiting, or diarrhea. No other complaints currently. General: non toxic, no distress, appears at stated age, obese Derm: warm, dry, erythema of the left second toe with a line of demarcation at the metatarsophalangeal joint, area of opening near nail bed with serous drainage that was cultured. Head: atraumatic, normocephalic, symmetric Eyes: EOMI, no lid lag, anicteric sclera Mouth: no lip lesion, mucus membranes moist Cardiovascular: S1S2 reg, no murmur, positive posterior tibial pulse bilateral, Lungs: Decreased breath sounds bilateral, no rhonchi, no rales , no accessory muscle use Abdominal: soft, nontender to palpation, no guarding, no appreciable organomegaly Ext: Left second toe with erythema, warmth, and swelling, no gross muscle atrophy, no edema, no contractures Neuro: CN II-XI grossly intact, no focal neuro deficits Psych: Alert, oriented, appropriate affect Left second toe osteomyelitis -Infectious disease recommendations: Aztreonam and vancomycin, anticipate need for PICC line and outpatient IV antibiotics which patient has done in the past. -Pain control -Podiatry recommendations - obtained culture of serous drainage from prior nail bed area Diabetes mellitus type 2 with neuropathy -Well-controlled with A1c 7.42/21 -Hold Actos and metformin -Tradjenta in place of januvia -Sliding-scale insulin, follow blood sugars Hypertension, urgency on arrival -Norvasc increased dose 04/01, continue hydrochlorothiazide. Consider initiation of SRINATH inhibitor in the outpatient setting with discontinuation of the calcium channel john secondary to being a known diabetic -Follow blood pressures closely Dyslipidemia -Pravachol Morbid obesity with BMI 62.8 -Structured outpatient weight loss DVT prophylaxis: Heparin Discussed with: Patient, nursing Anticipated discharge: 3-[address]: Home A total of 35 minutes was spent on the care of this complex patient more than 50% of the time was spent in counseling and care coordination. Objective - Vital Signs Vital signs: Vital Signs Temp 97.8 F 04/01/20 07:41 Pulse 63 04/01/20 08:00 Resp 20 04/01/20 08:00 BP 166/97 04/01/20 07:41 Pulse Ox 96 04/01/20 07:41 Intake & Output 03/31/20 04/01/20 04/01/20 18:59 06:59 18:59 Intake Total 900 2320 Balance 900 2320 Weight 215.78 kg Intake: Intake, IV Titration 900 1500 Amount Aztreonam 2 gm In Sodium 200 Chloride 0.9% 100 ml @ 33 .3 mls/hr IVPB Q8HR KARIN Rx#:[id number] Sodium Chloride 0.9% 1, 900 300 000 ml @ 75 mls/hr IV . [id number] KARIN Rx#:[id number] Vancomycin 2,500 mg In 1000 Sodium Chloride 0.9% 500 ml 500 ml @ 167 mls/hr IVPB Q8H KARIN Rx#: [id number] Oral 820 Other: # Voids 2 - Labs CBC & Chem 7: 04/01/20 06:25 04/01/20 06:25 Labs: Abnormal Lab Results - Last 24 Hours (Table) 03/30/20 03/31/20 03/31/20 Range/Units 16:30 11:12 16:42 Hgb (13.0-17.0) g/dL Hct (39.6-50.0) % MCH (27.0-32.0) pg MCHC (32.0-37.0) g/dL RDW (11.5-14.5) % Glucose (70-110) mg/dL POC Glucose (mg/dL) 170 H 126 H (75-99) mg/dL Hemoglobin A1c 7.6 H (4.0-6.0) % Calcium (8.7-10.3) mg/dL 03/31/20 04/01/20 04/01/20 Range/Units 21:26 06:25 06:25 Hgb 12.2 L (13.0-17.0) g/dL Hct 38.8 L (39.6-50.0) % MCH 26.2 L (27.0-32.0) pg MCHC 31.4 L (32.0-37.0) g/dL RDW 15.6 H (11.5-14.5) % Glucose 154 H (70-110) mg/dL POC Glucose (mg/dL) 151 H (75-99) mg/dL Hemoglobin A1c (4.0-6.0) % Calcium 8.5 L (8.7-10.3) mg/dL 04/01/20 Range/Units 07:08 Hgb (13.0-17.0) g/dL Hct (39.6-50.0) % MCH (27.0-32.0) pg MCHC (32.0-37.0) g/dL RDW (11.5-14.5) % Glucose (70-110) mg/dL POC Glucose (mg/dL) 140 H (75-99) mg/dL Hemoglobin A1c (4.0-6.0) % Calcium (8.7-10.3) mg/dL
[2020-04-01 11:54] LABS: Glucose,Whole Blood 142 mg/dL (75-99)
[2020-04-01 15:27] VITALS: BMI 62.7
[2020-04-01 16:50] LABS: Glucose,Whole Blood 121 mg/dL (75-99)
[2020-04-01 20:21] LABS: Glucose,Whole Blood 154 mg/dL (75-99)
[2020-04-01] MEDS: SODIUM CHLORIDE 0.9% 1,000 ML IV SCH (20:56)
--- NOTE | 2020-04-01 23:13 | PN ---
PROGRESS NOTE DATE OF SERVICE: 04/01/2020 REASON FOR FOLLOWUP: Left second toe diabetic foot infection with underlying osteomyelitis. INTERVAL HISTORY: The patient is currently afebrile. He is breathing comfortably. The patient denies having any chest pain or shortness of breath or cough. No nausea, no vomiting. No abdominal pain or any worsening pain to the left foot. PHYSICAL EXAMINATION: Blood pressure is 192/84 with a pulse of 68, temperature 97.6. He is 98% on room air. General description is a middle-aged male lying in bed in no distress. RESPIRATORY SYSTEM: Unlabored breathing. Clear to auscultation anteriorly. HEART: S1, S2. Regular rate and rhythm. ABDOMEN: Soft. No tenderness. LABS: Culture from the second toe has been Streptococcus agalactiae and Pseudomonas aeruginosa. DIAGNOSTIC IMPRESSION AND PLAN: Patient with left second toe osteomyelitis. Culture positive for Streptococcus agalactiae and Pseudomonas aeruginosa. Unfortunately the patient is ALLERGIC to both to PENICILLIN and CEFTRIAXONE. Patient is covered with vancomycin and Azactam with plan for no amputation. He will get a PICC line for at least 6 weeks of IV vancomycin along with oral Cipro. Continue with supportive care. MMODL / IJN: [id number] /
[2020-04-02] MEDS: HEPARIN SODIUM,PORCINE 5,000 UNIT/ML 1 ML VIAL SQ SCH ×2 (00:02→07:24)
[2020-04-02] MEDS: VANCOMYCIN 2,500 MG in SODIUM CHLORIDE 0.9% 500 ML 500 ML IVPB SCH ×2 (00:02→10:05)
[2020-04-02] MEDS: AZTREONAM 2 GM in SODIUM CHLORIDE 0.9% 100 ML IVPB SCH ×2 (00:02→07:24)
[2020-04-02 02:49] VITALS: RESP 16
[2020-04-02] MEDS: SODIUM CHLORIDE 0.9% 1,000 ML IV SCH ×3 (04:25→14:53)
[2020-04-02 07:00] LABS: Glucose,Whole Blood 167 mg/dL (75-99)
[2020-04-02] MEDS: INSULIN ASPART (NovoLOG) 100 UNIT/ML VIAL SQ SCH ×2 (07:23→12:11)
[2020-04-02] MEDS ORDERED: VANCOMYCIN TROUGH DUE 1 EACH MISC MISCELLANE ONE (08:00)
[2020-04-02] MEDS: hydroCHLOROthiazide 12.5 MG CAP PO SCH (09:11)
[2020-04-02] MEDS: PRAVASTATIN SODIUM 20 MG TAB PO SCH (09:11)
[2020-04-02] MEDS: LINAGLIPTIN 5 MG TABLET PO SCH (09:12)
[2020-04-02] MEDS: amLODIPine 10 MG TAB PO SCH (09:12)
[2020-04-02] MEDS ORDERED: LIDOCAINE 1% INJ 10MG/ML (20 ML MDV) ONE (09:17)
[2020-04-02] MEDS ORDERED: LIDOCAINE 1% INJ 10MG/ML (20 ML MDV) SQ ONE (09:40)
--- NOTE | 2020-04-02 11:17 | IR ---
PICC LINE PLACEMENT: HISTORY: Infection requiring long-term antibiotic therapy PROCEDURE: Ultrasound and fluoroscopic guidance of PICC line placement. COMPLICATIONS: None ANESTHESIA: 1. 1% Lidocaine locally. FINDINGS/TECHNIQUE: The procedure was explained to the patient. The risks, complications, benefits and alternatives were discussed and any questions were answered. Informed consent was obtained. The patient was placed supine on the fluoroscopic table and prepped and draped in the usual sterile fash ion. Utilizing a 21 gauge needle and sonographic and fluoroscopic guidance, access in the left basi lic vein was achieved and there is placement of a 0.018 guidewire. The vein is patent. A 4-F sheath was placed over the guidewire. The guidewire and dilator were removed and a 4-F. PICC line was plac ed through the sheath with the tip at the level of the SVC. The sheath was removed, the catheter was flushed and sutured into position. The patient was stable throughout the procedure and remained sta ble upon discharge from the Department of Radiology. The vein puncture was patent under ultrasound. A downey scale image was obtained to document patency of the vein punctured. All elements of the maximal barrier technique were utilized. FLUOROSCOPY TIME: 0.2 minutes and 1 images submitted IMPRESSION: Successful PICC line placement under ultrasound and fluoroscopic guidance.
[2020-04-02 11:38] LABS: Glucose,Whole Blood 150 mg/dL (75-99)
[2020-04-02 12:27] LABS: African American GFR (CKD) 122.5 (60.0-200.0); Non-African American GFR(CKD) 105.7 (60.0-200.0)
--- NOTE | 2020-04-02 12:40 | P.GSHP ---
History of Present Illness H&P Date: 04/01/20 Chief Complaint: Cellulitis osteomyelitis left second toe Patient 39-year-old male seen in my office for treatment of an ulcer on the distal aspect of the left second toe. The ulcer breakdown rapidly and we performed a surgical debridement and the ulcer with removal of the distal phalanx. She did not respond to oral antibiotics so patient was sent to the emergency room for evaluation and IV antibiotic placement to help decrease the risk of further amputation the digit. Patient is seen for follow-up in the Hospital for this. Past Medical History Past Medical History: Diabetes Mellitus, Hypertension Additional Past Medical History / Comment(s): cellulitis left leg RT FOOT INFECTION SECOND TOE 07/2015 History of Any Multi-Drug Resistant Organisms: None Reported Additional Past Surgical History / Comment(s): vasectomy, GED, tpe surgery Past Anesthesia/Blood Transfusion Reactions: No Reported Reaction Past Psychological History: No Psychological Hx Reported Smoking Status: Former smoker Past Alcohol Use History: Rare Past Drug Use History: None Reported - Past Family History Mother Family Medical History: Diabetes Mellitus Father Family Medical History: Unable to Obtain Medications and Allergies Home Medications Medication Instructions Recorded Confirmed Type sitaGLIPtin [Januvia] 100 mg PO DAILY 03/04/14 03/30/20 History amLODIPine BESYLATE [Norvasc] 5 mg PO DAILY 05/07/15 03/30/20 History hydroCHLOROthiazide [Hydrodiuril] 12.5 mg PO DAILY 08/04/15 03/30/20 History Ciprofloxacin HCl [Cipro] 750 mg PO Q12H 03/30/20 03/30/20 History Olmesartan Medoxomil [Benicar] 40 mg PO DAILY 03/30/20 03/30/20 History Pioglitazone [Actos] 45 mg PO DAILY 03/30/20 03/30/20 History Pravastatin Sodium [Pravachol] 10 mg PO DAILY 03/30/20 03/30/20 History clindamycin HCL [Cleocin] 300 mg PO TID 03/30/20 03/30/20 History metFORMIN HCL [metFORMIN HCL ER] 750 mg PO BID 03/30/20 03/30/20 History Allergies Allergy/AdvReac Type Severity Reaction Status Date / Time Penicillins Allergy Intermediate Rash/Hives Verified 03/30/20 17:36 ceftriaxone sodium Allergy Rash/Hives Verified 03/30/20 17:36 [From Rochin] Surgical - Exam Vital Signs Temp Pulse Resp BP Pulse Ox 97.7 F 89 16 174/125 97 03/30/20 15:40 03/30/20 15:40 03/30/20 15:40 03/30/20 15:40 03/30/20 15:40 - Cardiovascular Patient has adequate perfusion to bilateral feet with palpable pedal pulses bilateral skin temperature texture tumor is normal and symmetrical bilateral - Integumentary Patient has edema of the left second toe with sutures intact that were loosely coapting the surgical wound to allow drainage. There is granulation tissue on t he dorsal surface distally of the left second toe. The left second toe has decreasing erythema and edema from his presentation in the office proximally 48 hours ago - Neurologic Patient has loss of protective sensation bilateral feet with diminished sensation to an SWM 5.07 mg wire up to including the lower leg bilateral vibratory 2 point tactile diminished bilateral - Musculoskeletal Patient has hammertoes of bilateral feet with amputated partial right second toe as well as distal aspect of the left second toe. She has a gastrocnemius eq uinus bilateral lotion of the remaining pedal joints are normal symmetrical all inverters everters plantar flexors dorsiflexors grossly normal symmetric bilateral review of MRI results show possible edema changes of the middle phalanx possibly consistent with osteomyelitis radiographs in the office were negative for any osseous changes Results - Labs 04/01/20 06:25 04/02/20 08:00 Abnormal Lab Results - Last 24 Hours (Table) 04/01/20 04/01/20 04/02/20 Range/Units 16:44 20:19 06:59 POC Glucose (mg/dL) 121 H 154 H 167 H (75-99) mg/dL 04/02/20 Range/Units 11:37 POC Glucose (mg/dL) 150 H (75-99) mg/dL Microbiology - Last 24 Hours (Table) 04/01/20 09:05 Gram Stain - Preliminary Toe - Left Second Wound Culture - Preliminary 04/01/20 09:05 Anaerobic Culture - Preliminary Toe - Left Second Diabetes panel 04/02/20 Range/Units 08:00 Creatinine 0.9 (0.6-1.5) mg/dL Pituitary panel 04/02/20 Range/Units 08:00 Creatinine 0.9 (0.6-1.5) mg/dL Adrenal panel 04/02/20 Range/Units 08:00 Creatinine 0.9 (0.6-1.5) mg/dL Assessment and Plan Assessment: Cellulitis with osteomyelitis left second toe Plan: Exam discussed with patient findings and treatment. We'll continue with local wound care and can continue with the IV antibiotics this appears to be helping decrease the patient's current infection of the digit. His cast with patient further surgical debridement however less run some antibiotics for a few days as this can be treated as an outpatient just patient be converted to a PICC line with IV antibiotics at home. If this is acceptable with infectious disease and medical.
--- NOTE | 2020-04-02 12:42 | P.PN ---
Subjective Progress Note Date: 04/02/20 Principal diagnosis: Cellulitis infection left second toe with osteomyelitis Patient being seen today follow-up care of infection of the left second toe. Medical examination shows the toe was stable with no progression of the infection Objective - Vital Signs Vital signs: Vital Signs Temp 98 F 04/02/20 07:27 Pulse 87 04/02/20 07:27 Resp 16 04/02/20 07:27 BP 137/79 04/02/20 07:27 Pulse Ox 95 04/02/20 07:27 Intake & Output 04/01/20 04/02/20 04/02/20 18:59 06:59 18:59 Intake Total 1700 236 Balance 1700 236 Weight 215.78 kg 215.2 kg Intake: Intake, IV Titration 1500 Amount Aztreonam 2 gm In Sodium 100 Chloride 0.9% 100 ml @ 33 .3 mls/hr IVPB Q8HR [facility] Rx#:[id number] Sodium Chloride 0.9% 1, 900 000 ml @ 75 mls/hr IV . [id number] [facility]IN Rx#:[id number] Vancomycin 2,500 mg In 500 Sodium Chloride 0.9% 500 ml 500 ml @ 167 mls/hr IVPB Q8H KARIN Rx#: [id number] Oral 200 236 Other: # Voids 1 - Integumentary Integumentary Comment(s): Patient continues to have edema and erythema of the left second digit extending from the distal aspect to the MPJ of her this has decreased since seen in the office but has been stable in the last 24 hours. - Labs CBC & Chem 7: 04/01/20 06:25 04/02/20 08:00 Labs: Abnormal Lab Results - Last 24 Hours (Table) 04/01/20 04/01/20 04/02/20 Range/Units 16:44 20:19 06:59 POC Glucose (mg/dL) 121 H 154 H 167 H (75-99) mg/dL 04/02/20 Range/Units 11:37 POC Glucose (mg/dL) 150 H (75-99) mg/dL Microbiology - Last 24 Hours (Table) 04/01/20 09:05 Gram Stain - Preliminary Toe - Left Second Wound Culture - Preliminary 04/01/20 09:05 Anaerobic Culture - Preliminary Toe - Left Second Assessment and Plan Assessment: Cellulitis with osteomyelitis left second toe Plan: Exam discussed with patient findings and treatment. We'll continue with local wound care and can continue with the IV antibiotics this appears to be helping decrease the patient's current infection of the digit. His cast with patient further surgical debridement however less run some antibiotics for a few days as this can be treated as an outpatient just patient be converted to a PICC line with IV antibiotics at home. If this is acceptable with infectious disease and medical.
[2020-04-02] MEDS ORDERED: DAPTOMYCIN IVPB ONE (13:15)
[2020-04-02] MEDS ORDERED: SODIUM CHLORIDE 0.9% IVPB ONE (13:15)
--- NOTE | 2020-04-02 13:58 | PN ---
PROGRESS NOTE DATE OF SERVICE: 04/02/2020 REASON FOR FOLLOWUP: Left second toe osteomyelitis. INTERVAL HISTORY: The patient is currently afebrile. He is breathing comfortably. Patient denies having any chest pain or shortness of breath or cough. No nausea, no vomiting. No abdominal pain or pain to the left foot. PHYSICAL EXAMINATION: Blood pressure 137/79, pulse of 87, temperature 98. He is 95% on room air. General description is a middle-aged male up in the chair in no distress. RESPIRATORY SYSTEM: Unlabored breathing, clear to auscultation anteriorly. HEART: S1, S2. Regular rate and rhythm. ABDOMEN: Soft, no tenderness. Left foot is currently dressed up. No obvious drainage on the dressing. LABS: Creatinine 0.9. DIAGNOSTIC IMPRESSION AND PLAN: Patient with left second toe osteomyelitis. Culture with and Pseudomonas. Patient does have PENICILLIN, CEPHALOSPORIN allergy. Per the discharge plan, the patient needs daily dose of antibiotic as he has to go to infusion clinic. Antibiotic has been switched to daptomycin and oral Cipro and a close outpatient followup. Questions and concerns were answered. MMODL / IJN: [id number] /
[2020-04-02 14:06] VITALS: BP 148/89; PULSE 69; TEMP 97.9
[2020-04-02 16:37] LABS: Glucose,Whole Blood 124 mg/dL (75-99)
--- NOTE | 2020-04-02 16:39 | CDI ---
Documentation Clarification Form Date: 04/02/2020 04:07:17 PM From: Doris Nelson RN, CCDS Admit Date: 03/30/2020 05:51:00 PM Patient Name: Ayse Sheikh V Visit Number: [id number] Discharge Date: ATTENTION: The Clinical Documentation Specialists (CDI) and [facility] Coding Staff appreciate your assistance in clarifying documentation. Please respond to the clarification below the line at the bottom and electronically sign. The CDI & [facility] Coding staff will review the response and follow-up if needed. Please note: Queries are made part of the Legal Health Record. If you have any questions, please contact the author of this message via ITS. Dr. Noemy Renner Osteomyelitis has been documented 03/31 and subsequent progress notes. Please render your opinion on the acuity of left second toe osteomyelitis. History/Risk Factors: Diabetes Mellitus, Hypertension, hammertoe, Clinical Indicators: 39-year-old male with recent partial second left distal toe removed present with infection left second toe, possible osteomyelitis: 03/30 Vital signs 174/125 89 16 97.7 03/31 Foot MRI: There is edema in the middle phalanx of the second toe consistent with osteomyelitis. 03/30 Labs: WBC 9.7, CRP 18.0, Treatment: 04/02 PICC Line placement Aztreonam 2 GM IVPB Q 8 HRS 03/31-04/02 Vancomycin 2,250 MG IVPG (PTD per protocol) dc 04/02 0, 9 NS IV @ 75MLS/HR Daptomycin 1,300 MG IVPB Once 04/02 In your professional opinion, please specify the acuity for underlying osteomyelitis, left second toe diabetic foot infection: Acuity: Acute Chronic Subacute Unable to Determine Cause: Viral (specify organism if know): Bacterial (specify organism if know): Other (please specify): Unable to Determine (Last Revision: November 2016) 04/03 Discharge summary: Acute left foot second toe osteomyelitis. MTDD
[2020-04-02] MEDS ORDERED: VANCOMYCIN 2,250 MG in SODIUM CHLORIDE 0.9% 500 ML 500 ML IVPB SCH (18:00)
--- NOTE | 2020-04-04 09:33 | DS ---
DISCHARGE SUMMARY DATE OF ADMISSION: 03/30/2020. DATE OF DISCHARGE: 04/02/2020. FINAL DIAGNOSES: 1. Acute left foot second toe osteomyelitis. 2. Morbid obesity, BMI 62.9. 3. Diabetes mellitus type 2. 4. Essential hypertension. CONSULTATIONS: 1. Dr. Nichols from Podiatry. 2. Dr. Renner from [place]. HOSPITAL COURSE: This is a 39-year-old patient of Dr. 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 The 2nd toe was recently partially amputated and he was put on ciprofloxacin and clindamycin. The casework supervisor did not like the way it looked. He was sent in. MRI did show osteomyelitis of the proximal phalanx. Cultures were negative. Antibiotics were coordinated by Dr. Renner. Patient was put on vancomycin and Levaquin initially. The patient has dressings in place. PICC line was placed for home antibiotics. On examination, temperature 97.9. Pulse 69, respiration 16, blood pressure 148/89, pulse ox 97% on room air. Lungs fair entry. Cardiovascular: First and second sounds normal. Left foot dressing in place. INVESTIGATIONS: White count 6.4, hemoglobin 12.2, potassium 4, creatinine 0.7. Espino virus PCR-not detected. CRP 18. HB A1c 7.6. Foot MRI edema of the middle phalanx of the second toe consistent with acute osteomyelitis, with amputation of the distal phalanx. DISCHARGE MEDICATIONS: 1. Januvia 100 mg a day. 2. Hydrochlorothiazide 12.5 mg p.o. daily. 3. Benicar 40 mg p.o. daily. 4. Actos 45 mg p.o. daily. 5. Metformin ER 750 mg b.i.d. 6. Ciprofloxacin 750 mg q.12 for 30 days. 7. Daptomycin 30 mg daily for 42 days. 8. Silvadene cream topical daily. 9. Norvasc 10 mg p.o. daily. FOLLOWUP: Follow up with Dr. Zohaib Bustamante in 1 week. Follow up with Dr. Renner on April 26, 2020 at 1:00 pm. [facility] on April 03 and follow up with Dr. Nichols. Weekly BMP, CRP, CBC, ESR. MMODL / IJN: [id number] /
== END 2020-04-02 16:45 | disposition home or self-care (01) | DRG 638 ==
LOC: EC 15:39 → 4SSUR 17:51
PROVIDERS: ADMIT Hospitalist; ATTEND Hospitalist
PROC: 02HV33Z Insertion of Infusion Device into Superior Vena Cava, Percutaneous Approach (ICD-10-PCS; principal; 2020-04-02 07:30)
DX: E11.69 Type 2 diabetes mellitus with other specified complication (principal); M86.172 Other acute osteomyelitis, left ankle and foot; Z68.44 Body mass index [BMI] 60.0-69.9, adult; L03.032 Cellulitis of left toe; E11.40 Type 2 diabetes mellitus with diabetic neuropathy, unspecified; E11.628 Type 2 diabetes mellitus with other skin complications; Z89.422 Acquired absence of other left toe(s); Z89.421 Acquired absence of other right toe(s); E66.01 Morbid (severe) obesity due to excess calories; Z20.822 Contact with and (suspected) exposure to COVID-19; I10 Essential (primary) hypertension; E78.5 Hyperlipidemia, unspecified; M20.42 Other hammer toe(s) (acquired), left foot; M20.41 Other hammer toe(s) (acquired), right foot; Z71.3 Dietary counseling and surveillance; Z86.19 Personal history of other infectious and parasitic diseases; Z79.84 Long term (current) use of oral hypoglycemic drugs; Z79.899 Other long term (current) drug therapy; Z87.891 Personal history of nicotine dependence; Z88.1 Allergy status to other antibiotic agents; Z88.0 Allergy status to penicillin; Z88.8 Allergy status to other drugs, medicaments and biological substances; Z83.3 Family history of diabetes mellitus
CPT/HCPCS: 36415; 36573; 80048; 80053; 80202; 81001; 82565; 83036; 83605; 85025; 85027; 86140; 87070; 87075; 87205; 87635; 96361; 96365; 96375; 96376; 99285

== ENCOUNTER 2020-04-09 10:52 | Day surgery (SDC) | payer MEDICAID ==
[2020-04-08 14:22] VITALS: BMI 56.0
[~2020-04-09 10:52] MED LIST: VANCOMYCIN 2,000 MG in SODIUM CHLORIDE 0.9% 500 ML 500 ML IVPB PRN
[2020-04-09 11:28] VITALS: TEMP 97.9
[2020-04-09 11:36] LABS: Glucose,Whole Blood 143 mg/dL (75-99)
[2020-04-09] MEDS ORDERED: LACTATED RINGERS 1,000 ML IV ONE (11:37)
[2020-04-09] MEDS ORDERED: PROPOFOL 10 MG/ML 20 ML VIAL IV ONE (12:30)
[2020-04-09] MEDS ORDERED: KETAMINE 10 MG/ML 20 ML VIAL ONE (12:30)
[2020-04-09] MEDS ORDERED: fentaNYL (PF) 50 MCG/ML 2 ML AMP ONE (12:30)
[2020-04-09] MEDS ORDERED: MIDAZOLAM 2 MG/2 ML VIAL ONE (12:30)
--- NOTE | 2020-04-09 12:36 | P.PN ---
Subjective Progress Note Date: 04/09/20 Principal diagnosis: Osteomyelitis left second toe She is being brought to the OR today for treatment of osteomyelitis of the proximal phalanx of the left second digit on the left foot. Then on IV antibiotics and has not responding. Last taken in the office show some erosive changes that are consistent with the MRI of the proximal phalanx. The intent of the surgery is to remove infected tissue so patient can resolve this infection without amputation. Objective - Vital Signs Vital signs: Vital Signs Temp 97.9 F 04/09/20 11:26 Pulse 59 L 04/09/20 11:26 Resp 18 04/09/20 11:26 BP 135/65 04/09/20 11:26 Pulse Ox 98 04/09/20 11:26 Intake & Output 04/08/20 04/09/20 04/09/20 18:59 06:59 18:59 Intake Total 200 Balance 200 Weight 192.777 kg 216.5 kg Intake: IV 200 - Labs Labs: Abnormal Lab Results - Last 24 Hours (Table) 04/09/20 Range/Units 11:34 POC Glucose (mg/dL) 143 H (75-99) mg/dL
[2020-04-09] MEDS ORDERED: SODIUM CHLORIDE 0.9% IVPB ONE (12:45)
[2020-04-09] MEDS ORDERED: DAPTOMYCIN IVPB ONE (12:45)
[2020-04-09] MEDS ORDERED: LIDOCAINE 2% (PF) 20 MG/ML 5 ML VIAL SQ ONE (12:54)
--- NOTE | 2020-04-09 13:21 | P.OP ---
Date of Procedure: 04/09/20 Preoperative Diagnosis: Left second toe osteomyelitis Postoperative Diagnosis: Osteomyelitis left second toe Procedure(s) Performed: Partial phalangectomy proximal phalanx left second toe Anesthesia: local Surgeon: Leopoldo Nichols Estimated Blood Loss (ml): 10 Pathology: other (Proximal phalanx hemisections) Condition: stable Disposition: other (Patient to be discharged to home when stable) Indications for Procedure: None responding osteomyelitis infection left second toe to IV antibiotics Operative Findings: Consistent with clinical observation the proximal phalanx head had erosive changes consistent with possible osteomyelitis Description of Procedure: Patient was brought to the OR and placed in the supine position and IV sedation was given. Obvious amounts web roll placed about the left ankle and left ankle pneumatic tourniquet applied. The left foot and ankle were then prepped in the usual aseptic manner. After sterile draping attention was directed to the left second toe toe was anesthetized with a total of 3 mL of 2% Xylocaine plain. The left foot was then exsanguinated via elevation and use of a Esmarch for 3 minutes after which a pneumatic tourniquet was inflated to 250 mmHg attention was then directed to the dorsal surface of the left second toe where a 4 cm linear longitudinal incision was directed over the proximal interphalangeal joint area. Was carried down to the superficial deep fascia down to the long extensor tendon. Tensor tendon was identified and tenotomized from medial to lateral. Then off the head of the proximal phalanx. Capsular tissue was then entered and capsular tissue was released off the head of the proximal phalanx on its dorsal medial lateral surfaces. A saw at the surgical neck and oblique type osteotomy was performed to through and through. Osseous fragment distal and plantar was then removed and retained for pathological evaluation the area was then copiously lavaged with sterile saline solution. Tendon was repaired with 3-0 Vicryl simper up sutures and edges were loosely coapted with tammie. The pneumatic tourniquet was deflated and adequate vascular flow was noted to all areas of the left foot. The wound was then dressed with Adaptic 4 x 4's and Kerlix. Over which a Jose wrap was loosely placed to secure the dressing. The patient was brought to the recovery room from the OR having tolerated procedure and anesthesia well. Return discharge stable to home. 2 patient is to continue IV antibiotics outpatient. I'll is to remain off the foot and only weight-bear as necessary with the surgical shoe. The remaining to his normal diet follow-up in the office on Sunday. She is to keep the dressing dry and intact. The specimens were sent out for pathology as well as biological culture and sensitivity. Plan - Discharge Summary Discharge Rx Participant: Yes New Discharge Prescriptions: No Action sitaGLIPtin [Januvia] 100 mg PO DAILY hydroCHLOROthiazide [Hydrodiuril] 12.5 mg PO DAILY Olmesartan Medoxomil [Benicar] 40 mg PO DAILY metFORMIN HCL [metFORMIN HCL ER] 750 mg PO BID Pioglitazone [Actos] 45 mg PO DAILY amLODIPine [Norvasc] 10 mg PO DAILY #30 tab SILVER sulfADIAZINE CREAM [Silvadene Cream] 1 applic TOPICAL DAILY applic Ciprofloxacin HCl [Cipro] 750 mg PO Q12H 30 Days #60 tab DAPTOmycin [Cubicin] 1,300 mg IV DAILY #42 bag Discharge Medication List sitaGLIPtin [Januvia] 100 mg PO DAILY 03/04/14 [History] hydroCHLOROthiazide [Hydrodiuril] 12.5 mg PO DAILY 08/04/15 [History] Olmesartan Medoxomil [Benicar] 40 mg PO DAILY 03/30/20 [History] Pioglitazone [Actos] 45 mg PO DAILY 03/30/20 [History] metFORMIN HCL [metFORMIN HCL ER] 750 mg PO BID 03/30/20 [History] Ciprofloxacin HCl [Cipro] 750 mg PO Q12H 30 Days #60 tab 04/02/20 [Rx] DAPTOmycin [Cubicin] 1,300 mg IV DAILY #42 bag 04/02/20 [Rx] SILVER sulfADIAZINE CREAM [Silvadene Cream] 1 applic TOPICAL DAILY applic 04/02/20 [Rx] amLODIPine [Norvasc] 10 mg PO DAILY #30 tab 04/02/20 [Rx]
[2020-04-09 13:41] VITALS: RESP 16
[2020-04-09 13:47] VITALS: PULSE 88
[2020-04-09 13:49] VITALS: BP 127/80
== END 2020-04-09 14:08 | disposition home or self-care (01) ==
LOC: OR 10:52
PROVIDERS: ATTEND Podiatrist
DX: E11.69 Type 2 diabetes mellitus with other specified complication (principal); M86.672 Other chronic osteomyelitis, left ankle and foot; E11.42 Type 2 diabetes mellitus with diabetic polyneuropathy; I10 Essential (primary) hypertension; Z98.52 Vasectomy status; Z87.891 Personal history of nicotine dependence; Z83.3 Family history of diabetes mellitus; E66.01 Morbid (severe) obesity due to excess calories; Z68.44 Body mass index [BMI] 60.0-69.9, adult; Z79.84 Long term (current) use of oral hypoglycemic drugs; Z79.899 Other long term (current) drug therapy; Z88.1 Allergy status to other antibiotic agents; Z88.0 Allergy status to penicillin
CPT/HCPCS: 88304; 88311; 87070; 87205; 87075; 28160; J2250; J3010; J0878; J2704; J2001

== ENCOUNTER → 2021-01-24 | Outpatient (CLI) | payer MEDICAID ==
--- NOTE | 2021-01-24 09:39 | MM ---
Reason for exam: clinical finding. History: Family history of breast cancer in maternal grandmother at age 50. Physical Findings: Nurse Summary: 3 x 1.5cm nodule in the right breast at 10 o'clock (nurse jesus). MG 3D Diag Mammo W/Cad CARMEN Bilateral CC and MLO view(s) were taken. The breast tissue is almost entirely fat. There is no discrete abnormality including area of concern on the right breast. These results were verbally communicated with the patient and result sheet given to the patient on 01/24/21. ASSESSMENT: Incomplete: need additional imaging evaluation, BI-RAD 0 RECOMMENDATION: Ultrasound of the right breast.
--- NOTE | 2021-01-24 09:41 | USB ---
Reason for exam: additional evaluation requested from abnormal screening. History: Family history of breast cancer in maternal grandmother at age 50. US Breast Limited RT Right limited breast ultrasound including focal area of concern, retroareolar and axilla demonstrates a 4.2 x 2.5 x 5.0cm oval, solid lesion at 10 o'clock, questionable lipoma. These results were verbally communicated with the patient and result sheet given to the patient on 01/24/21. ASSESSMENT: Probably benign, BI-RAD 3 RECOMMENDATION: Ultrasound of the right breast in 6 months.
== END | disposition home or self-care (01) ==
LOC: RADMAMWWP 07:02
PROVIDERS: ATTEND Family Medicine
DX: N64.59 Other signs and symptoms in breast (principal); Z80.3 Family history of malignant neoplasm of breast
CPT/HCPCS: 77062; 77066

== ENCOUNTER → 2021-08-01 | Outpatient (CLI) | payer MEDICAID ==
[2021-08-01 14:29] LABS: HCT 42.5 % (39.6-50.0); HGB 13.3 g/dL (13.0-17.0); MCH 26.1 pg (27.0-32.0); MCHC 31.3 g/dL (32.0-37.0); MCV 83.3 fL (80.0-97.0); Mean Platelet Volume 11.5 fL (9.5-12.2); NRBC Per 100 WBC 0 /100 WBCS (0.0-0.0); Platelet Count 238 X 10*3/uL (140-440); RDW 14.7 % (11.5-14.5); WBC 8.23 X 10*3/uL (4.50-10.00)
[2021-08-01 14:33] LABS: ALT 23 U/L (10-49); AST 24 U/L (14-35); African American GFR (CKD) 127.7 (60.0-200.0); Albumin 3.7 g/dL (3.8-4.9); Albumin/Globulin Ratio 1.23 (1.60-3.17); Alkaline Phosphatase 50 U/L (41-126); BUN/Creat Ratio 24.75 Ratio (12.00-20.00); Blood Urea Nitrogen 19.8 mg/dL (9.0-27.0); Carbon Dioxide 26.7 mmol/L (20.0-27.5); Chloride 102 mmol/L (96-109); Chol/HDL Ratio 6.06 Ratio; Glucose 175 mg/dL (70-110); Non-African American GFR(CKD) 110.2 (60.0-200.0); Potassium 4.3 mmol/L (3.5-5.5); Sodium 139 mmol/L (135-145); Total Protein 6.7 g/dL (6.2-8.2)
== END | disposition home or self-care (01) ==
LOC: LABWHC1 09:24
PROVIDERS: ATTEND Family Medicine
DX: Z00.01 Encounter for general adult medical examination with abnormal findings (principal)
CPT/HCPCS: 36415; 80053; 80061; 85027